=== PATIENT | female | born 2000 | race Caucasian/White ===

== ENCOUNTER 2020-10-04 13:33 | Emergency (ER) | payer OTHER ==
[2020-10-04] MEDS ORDERED: Acetaminophen 325 MG Tab PO ONE (13:55)
--- NOTE | 2020-10-04 14:50 | EDM.PDOC ---
ED HPI GENERAL MEDICAL PROBLEM - General Chief Complaint: Upper Extremity Injury/Pain Stated Complaint: L WRIST PAIN Time Seen by Provider: 10/04/20 13:48 Source of Information: Reports: Patient - History of Present Illness INITIAL COMMENTS - FREE TEXT/NARRATIVE: 20-year-old female presenting with left wrist pain. She was at work, lifted a very heavy box which started to slip and pulled her wrist down forcefully and felt a pop. Since then she has been having increasingly severe pain. She has right and left handed. She did not have any blunt trauma to the wrist or arm nor did she fall on an outstretched hand. Pain with any range of motion of the hand/wrist. Has not yet taken any medications prior to arrival here. No alleviating factors. Onset: Today (Just prior to arrival) Duration: Constant Location: Reports: Upper Extremity, Left Quality: Reports: Ache Severity: Moderate Improves with: Reports: None Worsens with: Reports: None Context: Reports: Lifting Associated Symptoms: Reports: No Other Symptoms Left Wrist Pain Score (Numeric/FACES): 7 - Related Data Allergies Allergy/AdvReac Type Severity Reaction Status Date / Time azithromycin [From Zithromax] Allergy Rash Verified 10/04/20 13:55 bee venom protein (honey bee) Allergy Rash Verified 10/04/20 13:55 carrot Allergy Rash Verified 10/04/20 13:55 grass pollen Allergy Rash Verified 10/04/20 13:55 tree nut Allergy Airway Verified 10/04/20 13:55 Tightness walnut Allergy Anaphylactic Verified 10/04/20 13:55 Shock Home Meds: Home Meds . [No Known Home Meds] 10/04/20 [History] Past Medical History - Past Health History Medical/Surgical History: Denies Medical/Surgical History - Infectious Disease History Infectious Disease History: Reports: None Social & Family History - Tobacco Use Tobacco Use Status *Q: Never Tobacco User - Caffeine Use Caffeine Use: Reports: None - Recreational Drug Use Recreational Drug Use: No Review of Systems - Review of Systems Review Of Systems: See Below Constitutional: Reports: No Symptoms Musculoskeletal: Reports: Hand Pain Skin: Reports: No Symptoms ED EXAM, GENERAL - Physical Exam Exam: See Below General Appearance: Alert, WD/WN, No Apparent Distress Head: Atraumatic, Normocephalic Neck: Normal Inspection, Supple Respiratory/Chest: No Respiratory Distress Cardiovascular: Regular Rate, Rhythm Extremities: Arm Pain, Other (Tender to palpation left wrist and base of left thumb. Pain with range of motion of the hand. Distally neurovascularly intact. Tenderness extends to mid forearm. No left elbow or left shoulder tenderness. Full range of motion of the left shoulder and elbow. Right upper extremity is unremarkabl) Neurological: Alert, Oriented, No Motor/Sensory Deficits Skin Exam: Warm, Dry, Intact Course - Vital Signs Text/Narrative:: Patient with injury to the left hand/wrist. Tender to palpation at the base of the thumb. X-ray of hand and wrist/forearm shows no acute fracture. However as she is having pain at the base of the thumb and tenderness in the anatomic snuffbox on examination, will place in thumb spica. DME: Type: Thumb spica prefab Applied by: JOSE LUIS Islas Reason: Base of thumb pain, possible occult scaphoid fracture Benefit to patient: Immobilization for possible occult/nonvisualized fracture Length of use: Until cleared by orthopedics Splint recheck: Splint in good position. Patient tolerated well. No distress. Distally neurovascularly intact. Last Recorded V/S: Last Vital Signs Temp 97.9 F 10/04/20 13:52 Pulse 76 10/04/20 16:02 Resp 18 10/04/20 16:02 BP 126/83 10/04/20 16:02 Pulse Ox 98 10/04/20 16:02 - Orders/Labs/Meds Orders: Active Orders 24 hr Category Date Time Status DME for Discharge [COMM] Stat Oth 10/04/20 15:53 Ordered Meds: Medications Discontinued Medications Generic Name Dose Route Start Last Admin Trade Name Carlota PRN Reason Stop Dose Admin Acetaminophen 975 mg 10/04/20 13:55 10/04/20 14:01 Acetaminophen 325 Mg Tab PO 10/04/20 13:56 975 mg NOW ONE Administration Departure - Departure Time of Disposition: 15:56 Disposition: Home, Self-Care 01 Clinical Impression: Sprain and strain of hand, Left wrist sprain - Discharge Information Instructions: Wrist Sprain, Adult, Wrist Sprain With Rehab-SportsMed Referrals: PCP,None [Primary Care Provider] - Forms: ED Department Discharge Additional Instructions: Please keep the splint on at all times until you can be seen by the orthopedic surgeon and cleared. No heavy lifting with the left hand/wrist. The following information is given to patients seen in the emergency department who are being discharged to home. This information is to outline your options for follow-up care. We provide all patients seen in our emergency department with a follow-up referral. The need for follow-up, as well as the timing and circumstances, are variable depending upon the specifics of your emergency department visit. If you don't have a primary care physician on staff, we will provide you with a referral. We always advise you to contact your personal physician following an emergency department visit to inform them of the circumstance of the visit and for follow-up with them and/or the need for any referrals to a consulting specialist. The emergency department will also refer you to a specialist when appropriate. This referral assures that you have the opportunity for follow-up care with a specialist. All of these measure are taken in an effort to provide you with optimal care, which includes your follow-up. Under all circumstances we always encourage you to contact your private physician who remains a resource for coordinating your care. When calling for follow-up care, please make the office aware that this follow-up is from your recent emergency room visit. If for any reason you are refused follow-up, please contact the [facility] Emergency Department at and asked to speak to the emergency department charge nurse. These follow-up with with the orthopedic clinic listed below. [facility] - [facility] Professional [address], [address] [place] [address] Sepsis Event Note (ED) - Evaluation Sepsis Screening Result: No Definite Risk - Focused Exam Vital Signs: Vital Signs Temp Pulse Resp BP Pulse Ox 10/04/20 16:02 76 18 126/83 98 10/04/20 13:52 97.9 F 84 16 128/83 98 - My Orders Last 24 Hours: My Active Orders 10/04/20 15:53 DME for Discharge [COMM] Stat - Assessment/Plan Last 24 Hours: My Active Orders 10/04/20 15:53 DME for Discharge [COMM] Stat
--- NOTE | 2020-10-04 15:16 | CR ---
HISTORY: Pain after lifting injury. COMPARISON: None available. FINDINGS: AP and lateral views of the left forearm were obtained for a total of two views. There is no sign of fracture or dislocation. The visualized elbow and wrist are normal in appearance. The soft tissue planes are preserved. There is no sign of radioopaque foreign body. IMPRESSION: Normal left forearm. Dictated by Eliseo Guevara MD @ 10/04/2020 3:15:[address] Eliseo Guevara @ Oct 04 2020 3:15PM
--- NOTE | 2020-10-04 15:18 | CR ---
HISTORY: Pain after lifting injury. COMPARISON: None available. FINDINGS: AP, lateral, and oblique views of the left wrist are obtained for a total of three views. There is no sign of fracture or dislocation. The bones of the carpus are in anatomic alignment with the distal radius. No degenerative disease is seen. The soft tissues are normal in appearance with no sign of foreign body. IMPRESSION: Normal left wrist. Dictated by Eliseo Guevara MD @ 10/04/2020 3:16:[address] Eliseo Guevara @ Oct 04 2020 3:16PM
== END 2020-10-04 16:15 | disposition home or self-care (01) ==
LOC: MW.ED 13:33
DX: S63.502A Unspecified sprain of left wrist, initial encounter (principal); Z91.030 Bee allergy status; Z88.1 Allergy status to other antibiotic agents; Z91.048 Other nonmedicinal substance allergy status; Z91.018 Allergy to other foods; X50.1XXA Overexertion from prolonged static or awkward postures, initial encounter
CPT/HCPCS: 73090; 73130; 99283; A9270

== ENCOUNTER 2021-01-02 22:00 | Emergency (ER) | payer BC ==
[2021-01-02] MEDS ORDERED: Sodium Chloride 0.9% 2.5 ML Syringe FLUSH PRN (23:14)
[2021-01-02] MEDS ORDERED: Sodium Chloride 0.9% 10 ML Syringe FLUSH PRN (23:14)
[2021-01-02] MEDS ORDERED: Sodium Chloride 0.9% 1,000 ML IV ONE (23:15)
[2021-01-02] MEDS ORDERED: Ondansetron 4 MG/2 ML SDV IVPUSH ONE (23:45)
--- NOTE | 2021-01-02 23:46 | EDM.PDOC ---
ED HPI GENERAL MEDICAL PROBLEM - General Chief Complaint: Abdominal Pain Stated Complaint: ADBOMINAL AND BACK PAIN, VOMITTING Time Seen by Provider: 01/02/21 22:58 - History of Present Illness INITIAL COMMENTS - FREE TEXT/NARRATIVE: History of present illness: [] The patient is right upper quadrant pain it radiates to her flank. It is constant for 1 week. It is worse after she eats. Its worse tonight. She is nauseated and vomiting everything for at least 24 hours. Her family history is positive for everybody in the family almost having her gallbladder out. Review of systems: As per history of present illness and below otherwise all systems reviewed and negative. Past medical history: As per history of present illness and as reviewed below otherwise noncontributory. Surgical history: As per history of present illness and as reviewed below otherwise noncontributory. Social history: No reported history of drug or alcohol abuse. Family history: As per history of present illness and as reviewed below otherwise noncontributory. Physical exam: Constitutional - well developed, well-nourished and in no acute distress HEENT - normocephalic, no evidence of trauma - external nose and mouth normal - no mass in neck and no JVD - mucosae moist EYES - full EOM, PERRL, no icterus - no evidence of inflammation, injection, or drainage Respiratory - no respiratory distress, equal bilateral expansion, lungs clear to auscultation and no abnormal lung sounds Cardiovascular - Regular Rhythm with S1 and S2 appreciated and no murmur, gallop or rub. GI -tender right upper quadrant. Gibbs sign positive. Abdomen soft without distension or organomegaly - normal bowel sounds - no guard or rebound Musculoskeletal no gross deformity of long bones or joints - no tenderness, swelling or edema Neurologic - Alert and oriented times four - CN II-XII grossly intact - motor sensory and coordination symmetrically normal Psychiatric - appropriate mood and affect with normal thought content Hematologic - No petechiae or purpura - mucosa appropriate color and sclera not pale - normal nail bed color and refill Integument - no rash or evidence of trauma - normal turgor Diagnostics: [] Therapeutics: [] Impression: [] Plan: [] Definitive disposition and diagnosis as appropriate pending reevaluation and review of above. - Related Data Allergies Allergy/AdvReac Type Severity Reaction Status Date / Time azithromycin [From Zithromax] Allergy Rash Verified 10/04/20 13:55 bee venom protein (honey bee) Allergy Rash Verified 10/04/20 13:55 carrot Allergy Rash Verified 10/04/20 13:55 grass pollen Allergy Rash Verified 10/04/20 13:55 tree nut Allergy Airway Verified 10/04/20 13:55 Tightness walnut Allergy Anaphylactic Verified 10/04/20 13:55 Shock Home Meds: Home Meds . [No Known Home Meds] 10/04/20 [History] Past Medical History - Past Health History Medical/Surgical History: Denies Medical/Surgical History - Infectious Disease History Infectious Disease History: Reports: None Social & Family History - Tobacco Use Tobacco Use Status *Q: Never Tobacco User Second Hand Smoke Exposure: No - Caffeine Use Caffeine Use: Reports: Soda - Recreational Drug Use Recreational Drug Use: No ED ROS GENERAL - Review of Systems Review Of Systems: Comprehensive ROS is negative, except as noted in HPI. ED EXAM, GENERAL - Physical Exam Exam: See Below Free Text/Narrative:: My physical exam is in the HPI Course - Vital Signs Text/Narrative:: The patient feels better at 1:10 AM the patient's labs are unremarkable and the patient has probable biliary colic with cholelithiasis. The patient will get an outpatient ultrasound of the gallbladder and follow-up with surgery. She will return if fever confusion or worse Last Recorded V/S: Last Vital Signs Temp 36.6 C 01/02/21 22:57 Pulse 81 01/03/21 00:34 Resp 16 01/03/21 00:34 BP 108/64 01/03/21 00:34 Pulse Ox 99 01/03/21 00:34 - Orders/Labs/Meds Orders: Active Orders 24 hr Category Date Time Status Sodium Chloride 0.9% [Saline Flush] Med 01/02/21 23:14 Active 10 ml FLUSH ASDIRECTED PRN Sodium Chloride 0.9% [Saline Flush] Med 01/02/21 23:14 Active 2.5 ml FLUSH ASDIRECTED PRN Saline Lock Insert [OM.PC] Stat Oth 01/02/21 23:14 Ordered Medication Orders Sodium Chloride (Sodium Chloride 0.9% 10 Ml Syringe) 10 ml FLUSH ASDIRECTED PRN PRN Reason: Keep Vein Open Sodium Chloride (Sodium Chloride 0.9% 2.5 Ml Syringe) 2.5 ml FLUSH ASDIRECTED PRN PRN Reason: Keep Vein Open Labs: Laboratory Tests 01/02/21 01/02/21 01/02/21 Range/Units 23:45 23:50 23:50 WBC 5.58 (4.0-11.0) K/uL RBC 4.70 (4.30-5.90) M/uL Hgb 14.4 (12.0-16.0) g/dL Hct 41.4 (36.0-46.0) % MCV 88.1 (80.0-98.0) fL MCH 30.6 (27.0-32.0) pg MCHC 34.8 (31.0-37.0) g/dL RDW Std Deviation 40.5 (28.0-62.0) fl RDW Coeff of Kathleen 13 (11.0-15.0) % Plt Count 254 (150-400) K/uL MPV 10.10 (7.40-12.00) fL Neut % (Auto) 36.7 L (48.0-80.0) % Lymph % (Auto) 53.6 H (16.0-40.0) % Dickens % (Auto) 7.9 (0.0-15.0) % Eos % (Auto) 1.4 (0.0-7.0) % Baso % (Auto) 0.4 (0.0-1.5) % Neut # (Auto) 2.1 (1.4-5.7) K/uL Lymph # (Auto) 3.0 H (0.6-2.4) K/uL Dickens # (Auto) 0.4 (0.0-0.8) K/uL Eos # (Auto) 0.1 (0.0-0.7) K/uL Baso # (Auto) 0.0 (0.0-0.1) K/uL Nucleated RBC % 0.0 /100WBC Nucleated RBCs # 0 K/uL Sodium 142 (136-145) mmol/L Potassium 3.9 (3.5-5.1) mmol/L Chloride 103 (98-107) mmol/L Carbon Dioxide 31.3 (21.0-32.0) mmol/L BUN 8 (7.0-18.0) mg/dL Creatinine 0.6 (0.6-1.0) mg/dL Est Cr Clr Drug Dosing 134.58 mL/min Estimated GFR (MDRD) > 60.0 ml/min Glucose 71 L (74-106) mg/dL Calcium 9.1 (8.5-10.1) mg/dL Total Bilirubin 0.4 (0.2-1.0) mg/dL AST 30 (15-37) IU/L ALT 47 (14-63) IU/L Alkaline Phosphatase 88 (46-116) U/L Total Protein 8.1 (6.4-8.2) g/dL Albumin 4.5 (3.4-5.0) g/dL Globulin 3.6 (2.6-4.0) g/dL Albumin/Globulin Ratio 1.2 (0.9-1.6) Lipase 102 (73-393) U/L HCG, Qual (NEG) Urine Color YELLOW Urine Appearance CLEAR Urine pH 6.0 (5.0-8.0) Ur Specific [place] >= 1.030 (1.001-1.035) Urine Protein NEGATIVE (NEGATIVE) mg/dL Urine Glucose (UA) NEGATIVE (NEGATIVE) mg/dL Urine Ketones NEGATIVE (NEGATIVE) mg/dL Urine Occult Blood NEGATIVE (NEGATIVE) Urine Nitrite NEGATIVE (NEGATIVE) Urine Bilirubin NEGATIVE (NEGATIVE) Urine Urobilinogen 0.2 (<2.0) EU/dL Ur Leukocyte Esterase NEGATIVE (NEGATIVE) 01/02/21 Range/Units 23:50 WBC (4.0-11.0) K/uL RBC (4.30-5.90) M/uL Hgb (12.0-16.0) g/dL Hct (36.0-46.0) % MCV (80.0-98.0) fL MCH (27.0-32.0) pg MCHC (31.0-37.0) g/dL RDW Std Deviation (28.0-62.0) fl RDW Coeff of Kathleen (11.0-15.0) % Plt Count (150-400) K/uL MPV (7.40-12.00) fL Neut % (Auto) (48.0-80.0) % Lymph % (Auto) (16.0-40.0) % Dickens % (Auto) (0.0-15.0) % Eos % (Auto) (0.0-7.0) % Baso % (Auto) (0.0-1.5) % Neut # (Auto) (1.4-5.7) K/uL Lymph # (Auto) (0.6-2.4) K/uL Dickens # (Auto) (0.0-0.8) K/uL Eos # (Auto) (0.0-0.7) K/uL Baso # (Auto) (0.0-0.1) K/uL Nucleated RBC % /100WBC Nucleated RBCs # K/uL Sodium (136-145) mmol/L Potassium (3.5-5.1) mmol/L Chloride (98-107) mmol/L Carbon Dioxide (21.0-32.0) mmol/L BUN (7.0-18.0) mg/dL Creatinine (0.6-1.0) mg/dL Est Cr Clr Drug Dosing mL/min Estimated GFR (MDRD) ml/min Glucose (74-106) mg/dL Calcium (8.5-10.1) mg/dL Total Bilirubin (0.2-1.0) mg/dL AST (15-37) IU/L ALT (14-63) IU/L Alkaline Phosphatase (46-116) U/L Total Protein (6.4-8.2) g/dL Albumin (3.4-5.0) g/dL Globulin (2.6-4.0) g/dL Albumin/Globulin Ratio (0.9-1.6) Lipase (73-393) U/L HCG, Qual NEGATIVE (NEG) Urine Color Urine Appearance Urine pH (5.0-8.0) Ur Specific [place] (1.001-1.035) Urine Protein (NEGATIVE) mg/dL Urine Glucose (UA) (NEGATIVE) mg/dL Urine Ketones (NEGATIVE) mg/dL Urine Occult Blood (NEGATIVE) Urine Nitrite (NEGATIVE) Urine Bilirubin (NEGATIVE) Urine Urobilinogen (<2.0) EU/dL Ur Leukocyte Esterase (NEGATIVE) Meds: Medications Generic Name Dose Route Start Last Admin Trade Name Freq PRN Reason Stop Dose Admin Sodium Chloride 10 ml 01/02/21 23:14 Sodium Chloride 0.9% 10 Ml Syringe FLUSH ASDIRECTED PRN Keep Vein Open Sodium Chloride 2.5 ml 01/02/21 23:14 Sodium Chloride 0.9% 2.5 Ml Syringe FLUSH ASDIRECTED PRN Keep Vein Open Discontinued Medications Generic Name Dose Route Start Last Admin Trade Name Carlota PRN Reason Stop Dose Admin Sodium Chloride 1,000 mls @ 1,000 mls/hr 01/02/21 23:15 01/02/21 23:59 Normal Saline IV 01/03/21 00:14 1,000 mls/hr .Bolus ONE Administration Ondansetron HCl 4 mg 01/02/21 23:45 01/02/21 23:59 Ondansetron 4 Mg/2 Ml Sdv IVPUSH 01/02/21 23:46 4 mg ONETIME ONE Administration Departure - Departure Time of Disposition: 01:10 Disposition: Home, Self-Care 01 Condition: Good Clinical Impression: Right upper quadrant pain - Discharge Information Instructions: Abdominal Pain, Adult, [id number] Referrals: PCP,None [Primary Care Provider] - Forms: ED Department Discharge Additional Instructions: Arrange an outpatient ultrasound of your gallbladder as soon as possible. Arrange a surgical appointment at the surgical clinic [facility] - General Surgery Professional Building [address] [place] [address], [address] [place] [address] You can follow-up with primary care if everything gets better and defer the surgery. [facility] - Primary Care [address] [place] [address] [place] [address] You should return immediately if you have a high fever with right upper quadrant pain or abdominal pain or if you have protracted vomiting or if you have confusion weakness dizziness diaphoresis sweating any other acute new problems that are unexplained. The following information is given to patients seen in the emergency department who are being discharged to home. This information is to outline your options for follow-up care. We provide all patients seen in our emergency department with a follow-up referral. The need for follow-up, as well as the timing and circumstances, are variable depending upon the specifics of your emergency department visit. If you don't have a primary care physician on staff, we will provide you with a referral. We always advise you to contact your personal physician following an emergency department visit to inform them of the circumstance of the visit and for follow-up with them and/or the need for any referrals to a consulting specialist. The emergency department will also refer you to a specialist when appropriate. This referral assures that you have the opportunity for follow-up care with a specialist. All of these measure are taken in an effort to provide you with optimal care, which includes your follow-up. Under all circumstances we always encourage you to contact your private physician who remains a resource for coordinating your care. When calling for follow-up care, please make the office aware that this follow-up is from your recent emergency room visit. If for any reason you are refused follow-up, please contact the [facility] Emergency Department at and asked to speak to the emergency department charge nurse. Sepsis Event Note (ED) - Evaluation Sepsis Screening Result: No Definite Risk - Focused Exam Vital Signs: Vital Signs Temp Pulse Resp BP Pulse Ox 01/03/21 00:34 81 16 108/64 99 01/02/21 22:57 36.6 C 84 20 121/73 99 - My Orders Last 24 Hours: My Active Orders 01/02/21 23:14 Sodium Chloride 0.9% [Saline Flush] 10 ml FLUSH ASDIRECTED PRN Sodium Chloride 0.9% [Saline Flush] 2.5 ml FLUSH ASDIRECTED PRN Saline Lock Insert [OM.PC] Stat - Assessment/Plan Last 24 Hours: My Active Orders 01/02/21 23:14 Sodium Chloride 0.9% [Saline Flush] 10 ml FLUSH ASDIRECTED PRN Sodium Chloride 0.9% [Saline Flush] 2.5 ml FLUSH ASDIRECTED PRN Saline Lock Insert [OM.PC] Stat
[2021-01-03 00:32] LABS: BLOOD UREA NITROGEN,BUN 8 mg/dL (7.0-18.0); CARBON DIOXIDE,CO2 31.3 mmol/L (21.0-32.0); CHLORIDE,CL 103 mmol/L (98-107); GLUCOSE RANDOM 71 mg/dL (74-106); LIPASE 102 U/L (73-393); POTASSIUM,K 3.9 mmol/L (3.5-5.1); SODIUM,NA 142 mmol/L (136-145)
== END 2021-01-03 01:17 | disposition home or self-care (01) ==
LOC: MW.ED 22:00
DX: R10.11 Right upper quadrant pain (principal); Z88.1 Allergy status to other antibiotic agents; Z91.030 Bee allergy status; Z91.018 Allergy to other foods; Z91.048 Other nonmedicinal substance allergy status
CPT/HCPCS: 36415; 80053; 81003; 83690; 84703; 85025; 96374; 99284; J2405; J7030